=== PATIENT | female | born 1970 | race Caucasian/White ===

== ENCOUNTER 2018-02-03 16:24 | Emergency (ER) | payer SELFPAY ==
[~2018-02-03] VITALS: Ht 162.6 cm; Wt 65.0 kg
[2018-02-03 16:28] VITALS: BP 140/80; PULSE 100; RESP 18; TEMP 99; O2SAT 98
[2018-02-03] MEDS ORDERED: ACETAMINOPHEN/HYDROcodone 325 MG/5 MG TAB PO ONE (17:00)
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
[2018-02-03] MEDS ORDERED: SODIUM CHLORIDE 0.9% FLUSH 10 ML FLUSH IVF PRN (17:30)
[2018-02-03 17:36] VITALS: RESP 16
[2018-02-03 17:40] LABS: BASOPHIL % 0.3 % (0.0-2.0); EOSINOPHIL % 0.5 % (0.0-4.0); HEMATOCRIT 32.6 % (35.0-46.0); HEMOGLOBIN 10.8 GM/DL (11.6-15.3); LYMPH % 16.7 % (9.0-44.0); LYMPHOCYTE # 0.9 TH/MM3 (1.0-4.8); MEAN CELL VOLUME 82.4 FL (80.0-100.0); MEAN CORPUSCULAR HEMOGLOBIN 27.3 PG (27.0-34.0); MEAN CORPUSCULAR HGB CONC 33.1 % (32.0-36.0); MEAN PLATELET VOLUME 6.5 FL (7.0-11.0); MONO % 4.4 % (0.0-8.0); MONOCYTE # 0.2 TH/MM3 (0-0.9); NEUT % 78.1 % (16.0-70.0); PLATELET COUNT 288 TH/MM3 (150-450); RED BLOOD COUNT 3.96 MIL/MM3 (4.00-5.30); RED CELL DISTRIBUTION WIDTH 11.6 % (11.6-17.2); WHITE BLOOD COUNT 5.1 TH/MM3 (4.0-11.0)
[2018-02-03 17:48] LABS: BICARBONATE 24.6 MEQ/L (21.0-32.0); CALCIUM 8.4 MG/DL (8.5-10.1)
[2018-02-03 17:52] LABS: CREATININE 0.67 MG/DL (0.50-1.00)
[2018-02-03] MEDS ORDERED: IOHEXOL 350 MG/ML 10 ML VIAL (for RAD DIAG) IVCONTRAST ONE (18:14)
[2018-02-03] MEDS ORDERED: PROPARACAINE HCL 0.5% OPHT SOLN 15 ML BTL LEFT EYE ONE (18:15)
--- NOTE | 2018-02-03 18:24 | RADRPT ---
EXAM DATE/TIME: 02/03/2018 18:04 [facility] COMPARISON: No previous studies available for comparison. INDICATIONS : Left facial pain and swelling. IV CONTRAST: 65 cc Omnipaque 350 (iohexol) IV RADIATION DOSE: 29.61 CTDIvol (mGy) MEDICAL HISTORY : Stroke. SURGICAL HISTORY : Hysterectomy. section. ENCOUNTER: Initial ACUITY: 2 days PAIN SCALE: 8/10 LOCATION: Left facial TECHNIQUE: Volumetric scanning of the facial bones was performed. Using automated exposure control and adjustme nt of the mA and/or kV according to patient size, radiation dose was kept as low as reasonably achiev able to obtain optimal diagnostic quality images. DICOM format image data is available electronicall y for review and comparison. FINDINGS: ORBITS: The orbital and infraorbital osseous structures are intact. The retroconal structures have a normal configuration. No radiopaque foreign bodies are seen. NASAL BONE: The nasal bone and maxillary spine are intact ZYGOMATIC ARCHES: Symmetric without evidence of fracture. SINUSES: The maxillary, ethmoid and frontal sinuses are intact. No air-fluid levels seen. NASAL CAVITY: The nasal septum is intact and midline. The lacrimal ducts are intact. SOFT TISSUES: There is soft tissue swelling and subcutaneous edema and inflammation of the left malar eminence most characteristic of cellulitis. No discrete abscess. INTRACRANIAL: No intracranial air seen. CRIBIFORM PLATE: Grossly intact. CONCLUSION: Cellulitis over the left malar eminence without discrete abscess. No acute bony abnormality. Boone Coelho MD on February 03, 2018 at 18:19 Board Certified Radiologist. This report was verified electronically.
[2018-02-03] MEDS ORDERED: CLIN150C14 PO (18:32)
[2018-02-03] MEDS ORDERED: HYDR-3516 PO (18:37)
[2018-02-03] MEDS ORDERED: CLINDAMYCIN 600 MG/NS PREMIX 50 ML IV ONE ×2 (18:45→19:30)
[2018-02-03] MEDS ORDERED: CLINDAMYCIN PHOS 600 MG/4 ML VIAL IM ONE (18:45)
[2018-02-03] MEDS ORDERED: MAGICADU2 SWISH-SPIT (19:56)
[2018-02-03 20:19] VITALS: BP 119/72
== END 2018-02-03 20:21 | disposition home or self-care (01) ==
LOC: PHEFT 16:24
DX: B37.0 Candidal stomatitis (principal); L03.211 Cellulitis of face
CPT/HCPCS: 70487; 80048; 85025; 96374; 99284; Q9967

== ENCOUNTER 2018-03-03 22:43 | Emergency (ER) | payer SELFPAY ==
[~2018-03-03] VITALS: Ht 162.6 cm; Wt 65.0 kg
[~2018-03-03 22:43] MED LIST: CLIN150C14 PO; HYDR-3516 PO; MAGICADU2 SWISH-SPIT
[2018-03-03 22:48] VITALS: BP 129/83; PULSE 111; O2SAT 99
[2018-03-03] MEDS ORDERED: LEXA10TA PO (22:57)
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
[2018-03-03] MEDS ORDERED: SODIUM CHLOR 0.9% 1000 ML INJ 1,000 ML IV ONE (23:15)
[2018-03-03 23:38] LABS: AUTOMATED NEUTROPHIL # 6.8 TH/MM3 (1.8-7.7); BASOPHIL % 0.3 % (0.0-2.0); EOSINOPHIL % 0.4 % (0.0-4.0); HEMATOCRIT 32.6 % (35.0-46.0); HEMOGLOBIN 11.7 GM/DL (11.6-15.3); LYMPH % 15.4 % (9.0-44.0); LYMPHOCYTE # 1.3 TH/MM3 (1.0-4.8); MEAN CELL VOLUME 83.2 FL (80.0-100.0); MEAN PLATELET VOLUME 7.3 FL (7.0-11.0); MONO % 5.4 % (0.0-8.0); MONOCYTE # 0.5 TH/MM3 (0-0.9); NEUT % 78.5 % (16.0-70.0); PLATELET COUNT 266 TH/MM3 (150-450); RED BLOOD COUNT 3.92 MIL/MM3 (4.00-5.30); RED CELL DISTRIBUTION WIDTH 13.2 % (11.6-17.2); WHITE BLOOD COUNT 8.7 TH/MM3 (4.0-11.0)
[2018-03-03 23:46] LABS: ALBUMIN 4.1 GM/DL (3.4-5.0); ALKALINE PHOSPHATASE 93 U/L (45-117); ALT (GPT) 34 U/L (10-53); AST (GOT) 28 U/L (15-37); BICARBONATE 23.4 MEQ/L (21.0-32.0); BLOOD UREA NITROGEN 9 MG/DL (7-18); CALCIUM 8.2 MG/DL (8.5-10.1); CHLORIDE 109 MEQ/L (98-107); GLOMERULAR FILTRATION RATE 66 ML/MIN (>89); GLUCOSE,RANDOM 92 MG/DL (74-106); SODIUM (NA) 144 MEQ/L (136-145); TOTAL BILIRUBIN ADULT 0.3 MG/DL (0.2-1.0); TOTAL PROTEIN 7.7 GM/DL (6.4-8.2)
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
[2018-03-04] MEDS ORDERED: POTASSIUM CHLORIDE 20 MEQ CONTROLLED RELEASE TAB PO ONE
[2018-03-04 00:02] VITALS: BP 142/84; PULSE 97; RESP 16; O2SAT 98
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
[2018-03-04 02:05] VITALS: BP 127/72; PULSE 99; RESP 16; O2SAT 96
[2018-03-04] MEDS ORDERED: IBUP-232 PO (04:59)
--- NOTE | 2018-03-04 16:50 | EKG ---
Date Performed: 03/03/2018 Time Performed: 22:52:58 PTAGE: 48 years EKG: SINUS TACHYCARDIA POSSIBLE RIGHT VENTRICULAR CONDUCTION DELAY ABNORMAL RHYTHM ECG NO PREVIOUS TRACING DOCTOR: Katalina Murguia Interpretating Date/Time 03/04/2018 16:25:29
== END 2018-03-04 05:16 | disposition home or self-care (01) ==
LOC: NEPE 22:43
DX: S00.83XA Contusion of other part of head, initial encounter (principal); F32.9 Major depressive disorder, single episode, unspecified; R00.0 Tachycardia, unspecified; T74.11XA Adult physical abuse, confirmed, initial encounter; Y07.03 Male partner, perpetrator of maltreatment and neglect; F10.129 Alcohol abuse with intoxication, unspecified; Y90.6 Blood alcohol level of 120-199 mg/100 ml; Z79.899 Other long term (current) drug therapy
CPT/HCPCS: 70450; 70486; 80053; 80307; 85025; 93005; 96360; 99284; J7030